=== PATIENT | male | born 2005 | race Hispanic/Latino ===

== ENCOUNTER 2025-09-07 09:09 | Emergency (ER) | payer OTHER, BC ==
[~2025-09-07] VITALS: Ht 172.7 cm; Wt 86.2 kg
[2025-09-07 09:17] VITALS: BP 148/83; PULSE 113; RESP 20; TEMP 98.2
--- NOTE | 2025-09-07 09:20 | NUR ---
REFER TO TRAUMA FLOW SHEET
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
--- NOTE | 2025-09-07 14:24 | EKG ---
[facility] Test Date: 2025-09-07 Test Time: 09:19:49 Pat Name: NAZ MURO Department: ED Room: Gender: M Public Defender: [id number] : 2005 Requested By: JHONY JONES Order Number: [id number] Reading MD: Paxton Guadarrama Measurements Intervals [place] Rate: 115 P: 26 AL: 141 QRS: -22 QRSD: 100 T: 49 QT: 317 QTc: 438 Interpretive Statements Sinus tachycardia No previous ECG available for comparison Electronically Signed On 09-07-2025 15:13:47 CDT by Paxton Guadarrama Please click the below link to view image of tracing.
== END 2025-09-07 11:40 | disposition home or self-care (01) ==
LOC: EDH 09:09
DX: M62.838 Other muscle spasm (principal); M79.602 Pain in left arm; V87.8XXA Person injured in other specified noncollision transport accidents involving motor vehicle (traffic), initial encounter; Y93.I9 Activity, other involving external motion; Y92.488 Other paved roadways as the place of occurrence of the external cause; Y99.8 Other external cause status
CPT/HCPCS: 72040; 73070; 73522; 73552; 93005; 99284